=== PATIENT | male | born 1985 | race Caucasian/White ===

== ENCOUNTER 2016-06-19 08:40 | Emergency (ER) | payer MEDICAID ==
[~2016-06-19] VITALS: Ht 175.3 cm; Wt 73.9 kg
[~2016-06-19 08:40] MED LIST: METFORMIN
[2016-06-19 09:40] VITALS: BP 126/83
[2016-06-19] MEDS ORDERED: CYCLOBENZAPRINE 10MG TABLET PO ONE (09:45)
[2016-06-19] MEDS ORDERED: IBUPROFEN 400MG TABLET PO ONE (09:45)
== END 2016-06-19 11:49 | disposition home or self-care (01) ==
LOC: ER 09:18
DX: S29.011A Strain of muscle and tendon of front wall of thorax, initial encounter (principal); M62.838 Other muscle spasm; E11.9 Type 2 diabetes mellitus without complications; F17.200 Nicotine dependence, unspecified, uncomplicated; Z88.0 Allergy status to penicillin; Z79.84 Long term (current) use of oral hypoglycemic drugs; X58.XXXA Exposure to other specified factors, initial encounter; Y93.89 Activity, other specified; Y99.8 Other external cause status; Y92.89 Other specified places as the place of occurrence of the external cause
CPT/HCPCS: 71010; 99283

== ENCOUNTER 2016-07-15 02:20 | Emergency (ER) | payer MEDICAID ==
[~2016-07-15] VITALS: Ht 180.3 cm; Wt 72.7 kg
[2016-07-15] MEDS ORDERED: KETOROLAC 60MG/2ML VIAL IM ONE (03:45)
[2016-07-15 04:10] VITALS: BP 103/62
== END 2016-07-15 05:02 | disposition home or self-care (01) ==
LOC: ER 02:21
DX: S46.912A Strain of unspecified muscle, fascia and tendon at shoulder and upper arm level, left arm, initial encounter (principal); E11.9 Type 2 diabetes mellitus without complications; F17.200 Nicotine dependence, unspecified, uncomplicated; R56.9 Unspecified convulsions; Z88.0 Allergy status to penicillin; Z79.84 Long term (current) use of oral hypoglycemic drugs; Z79.899 Other long term (current) drug therapy; X58.XXXA Exposure to other specified factors, initial encounter; Y93.89 Activity, other specified; Y99.8 Other external cause status; Y92.89 Other specified places as the place of occurrence of the external cause
CPT/HCPCS: 73090; 73110; 96372; 99284; J1885

== ENCOUNTER 2016-08-05 11:31 | Emergency (ER) | payer MEDICAID ==
[~2016-08-05] VITALS: Ht 182.9 cm; Wt 73.0 kg
[2016-08-05 14:12] VITALS: BP 126/79
[2016-08-05] MEDS ORDERED: LIDOCAINE HCL 1%/EPI 1:200,000 30 ML VIAL MC ONE (16:45)
[2016-08-05] MEDS ORDERED: BACITRACIN ZINC OINT UDPKT TOP ONE (16:45)
== END 2016-08-05 18:35 | disposition home or self-care (01) ==
LOC: ER 14:24
DX: S51.811A Laceration without foreign body of right forearm, initial encounter (principal); W25.XXXA Contact with sharp glass, initial encounter; Y93.89 Activity, other specified; Y92.89 Other specified places as the place of occurrence of the external cause; I10 Essential (primary) hypertension; F17.210 Nicotine dependence, cigarettes, uncomplicated; E11.9 Type 2 diabetes mellitus without complications; G40.909 Epilepsy, unspecified, not intractable, without status epilepticus; Z85.110 Personal history of malignant carcinoid tumor of bronchus and lung
CPT/HCPCS: 12002; 73090; 99284; Z7610

== ENCOUNTER 2018-02-14 13:23 | Emergency (ER) | payer MEDICAID ==
[~2018-02-14] VITALS: Ht 175.3 cm; Wt 79.0 kg
[2018-02-14] MEDS ORDERED: PHEN100C4 PO (13:28)
[2018-02-14] MEDS ORDERED: SODIUM CHLORIDE 0.9% 500 ML IV ONE (15:00)
[2018-02-14 15:19] LABS: BASOPHILS % 0.7 % (0.0-2.0); EOSINOPHILS % 5.5 % (0.0-5.0); HEMATOCRIT. 41.9 % (42.0-52.0); HEMOGLOBIN. 14.2 g/dL (14.0-18.0); LYMPHOCYTES % 15.4 % (20.0-50.0); MEAN CORPUSCULAR HEMOGLOBIN 31.1 pg (28.0-32.0); MEAN CORPUSCULAR VOLUME 92.1 fL (80.0-94.0); MEAN PLATELET VOLUME 7.6 fl (7.4-10.4); MONOCYTES % 9.4 % (2.0-8.0); PLATELET 209 x1000/uL (130-400); RED BLOOD CELL COUNT 4.55 mill/uL (4.7-6.1); RED CELL DISTRIBUTION WIDTH 13.8 % (11.6-14.6)
[2018-02-14 16:17] LABS: CLARITY URINE CLEAR (CLEAR); COLOR URINE YELLOW (YELLOW); KETONES URINE NEGATIVE (NEGATIVE); LEUKOCYTE ESTERASE URINE 1+ (NEGATIVE); NITRITE URINE NEGATIVE (NEGATIVE); OCCULT BLOOD URINE NEGATIVE (NEGATIVE); PROTEIN URINE NEGATIVE (NEGATIVE); SPECIFIC GRAVITY URINE 1.018 (1.005-1.030)
[2018-02-14 16:30] LABS: CHLORIDE 108 mEq/L (98-107)
[2018-02-14 16:40] LABS: *AMPHETAMINES SCREEN URINE NEGATIVE (NEGATIVE); *BARBITURATES SCREEN URINE NEGATIVE (NEGATIVE)
[2018-02-14 16:41] LABS: *BENZODIAZEPINES SCREEN URINE PRESUMTIVE POSITIVE (NEGATIVE); *COCAINE SCREEN URINE NEGATIVE (NEGATIVE); METHADONE URINE SCREEN NEGATIVE (NEGATIVE); OPIATES URINE SCREEN NEGATIVE (NEGATIVE); PHENCYCLIDINE URINE SCREEN NEGATIVE (NEGATIVE)
[2018-02-14 16:43] LABS: CANNABINOID URINE SCREEN NEGATIVE (NEGATIVE)
[2018-02-14] MEDS ORDERED: PHENYTOIN SODIUM EXTENDED 100MG CAPSULE PO ONE (16:45)
[2018-02-14 16:52] LABS: VALPROIC ACID < 3.0 ug/mL (50-100)
[2018-02-14] MEDS ORDERED: SULFAMETHOXAZOLE/TRIMETHOPRIM 800/160MG TABLET PO ONE (18:15)
[2018-02-14 18:23] VITALS: BP 105/66
== END 2018-02-14 18:35 | disposition home or self-care (01) ==
LOC: ER 13:23
DX: G40.909 Epilepsy, unspecified, not intractable, without status epilepticus (principal); E11.65 Type 2 diabetes mellitus with hyperglycemia; E86.0 Dehydration; E88.09 Other disorders of plasma-protein metabolism, not elsewhere classified; E87.8 Other disorders of electrolyte and fluid balance, not elsewhere classified; F99 Mental disorder, not otherwise specified; F13.10 Sedative, hypnotic or anxiolytic abuse, uncomplicated; D64.9 Anemia, unspecified; Z88.0 Allergy status to penicillin; Z79.84 Long term (current) use of oral hypoglycemic drugs
CPT/HCPCS: 36415; 71045; 80165; 80185; 80305; 82542; 82962; 83735; 83880; 84484; 93005; 99284

== ENCOUNTER 2018-03-28 11:07 | Emergency (ER) | payer MEDICAID ==
[~2018-03-28] VITALS: Ht 180.3 cm; Wt 82.0 kg
[~2018-03-28 11:07] MED LIST changes: +PHEN100C4 PO
[2018-03-28] MEDS ORDERED: SODIUM CHLORIDE 0.9% 1,000 ML IV ONE (11:37)
[2018-03-28] MEDS ORDERED: LORAZEPAM 2MG/ML CPJ IV ONE (11:45)
[2018-03-28 12:06] LABS: EOSINOPHILS % 6.3 % (0.0-5.0); HEMATOCRIT. 43.9 % (42.0-52.0); LYMPHOCYTES % 21.7 % (20.0-50.0); MEAN CORPUSCULAR VOLUME 90.7 fL (80.0-94.0); MEAN PLATELET VOLUME 7.5 fl (7.4-10.4); MONOCYTES % 7.8 % (2.0-8.0); NEUTROPHILS % 63.2 % (40.0-76.0); PLATELET 234 x1000/uL (130-400); RED BLOOD CELL COUNT 4.84 mill/uL (4.7-6.1); RED CELL DISTRIBUTION WIDTH 13.8 % (11.6-14.6)
[2018-03-28 12:14] LABS: CHLORIDE 107 mEq/L (98-107)
[2018-03-28 12:20] LABS: ETHANOL BLOOD < 10 mg/dL
[2018-03-28 12:23] LABS: PROTHROMBIN TIME 10.4 sec (9.1-11.1)
[2018-03-28] MEDS: SODIUM CHLORIDE 0.9% IV NR ×2 (12:28→12:29)
[2018-03-28] MEDS: PHENYTOIN SODIUM IV NR ×2 (12:28→12:29)
[2018-03-28] MEDS ORDERED: PHENYTOIN SODIUM EXTENDED 100MG CAPSULE PO ONE (13:30)
[2018-03-28 14:10] LABS: CLARITY URINE CLOUDY (CLEAR); COLOR URINE YELLOW (YELLOW); KETONES URINE NEGATIVE (NEGATIVE); LEUKOCYTE ESTERASE URINE NEGATIVE (NEGATIVE); NITRITE URINE NEGATIVE (NEGATIVE); OCCULT BLOOD URINE NEGATIVE (NEGATIVE); PH URINE 8.5 (4.5-8.0); PROTEIN URINE NEGATIVE (NEGATIVE); SPECIFIC GRAVITY URINE 1.013 (1.005-1.030)
[2018-03-28 14:47] LABS: *AMPHETAMINES SCREEN URINE NEGATIVE (NEGATIVE); *BARBITURATES SCREEN URINE NEGATIVE (NEGATIVE); *BENZODIAZEPINES SCREEN URINE PRESUMTIVE POSITIVE (NEGATIVE); *COCAINE SCREEN URINE NEGATIVE (NEGATIVE); CANNABINOID URINE SCREEN NEGATIVE (NEGATIVE); METHADONE URINE SCREEN NEGATIVE (NEGATIVE); OPIATES URINE SCREEN NEGATIVE (NEGATIVE); PHENCYCLIDINE URINE SCREEN NEGATIVE (NEGATIVE)
[2018-03-28 17:00] VITALS: BP 113/84
== END 2018-03-28 17:13 | disposition home or self-care (01) ==
LOC: ER 11:11
DX: G40.909 Epilepsy, unspecified, not intractable, without status epilepticus (principal); I45.10 Unspecified right bundle-branch block; Z88.0 Allergy status to penicillin
CPT/HCPCS: 36415; 70450; 71045; 72125; 80053; 80185; 80305; 81003; 84484; 85025; 85610; 93005; 96365; 96366; 96375; 99284; G0482; J1165; J2060; J7030; J7050

== ENCOUNTER 2018-03-28 20:00 | Emergency (ER) | payer MEDICAID ==
[~2018-03-28] VITALS: Ht 172.7 cm; Wt 72.0 kg
[2018-03-28 20:02] VITALS: BP 128/87
== END 2018-03-29 00:27 | disposition left against medical advice (07) ==
LOC: ER 20:00
DX: Z53.21 Procedure and treatment not carried out due to patient leaving prior to being seen by health care provider (principal)

== ENCOUNTER 2020-10-22 05:57 | Emergency (ER) | payer MEDICAID ==
[~2020-10-22] VITALS: Ht 180.3 cm; Wt 73.0 kg
[2020-10-22 06:36] LABS: BASOPHILS % 0.7 % (0.0-2.0); EOSINOPHILS % 1.9 % (0.0-5.0); HEMATOCRIT. 36.7 % (42.0-52.0); HEMOGLOBIN. 12.8 g/dL (14.0-18.0); LYMPHOCYTES % 19.3 % (20.0-50.0); MEAN CORPUSCULAR HEMOGLOBIN 29.5 pg (28.0-32.0); MEAN CORPUSCULAR VOLUME 84.7 fL (80.0-94.0); MEAN PLATELET VOLUME 6.3 fl (7.4-10.4); MONOCYTES % 9.3 % (2.0-8.0); NEUTROPHILS % 68.8 % (40.0-76.0); PLATELET 245 x1000/uL (130-400); RED BLOOD CELL COUNT 4.34 mill/uL (4.7-6.1); RED CELL DISTRIBUTION WIDTH 13.3 % (11.6-14.6)
[2020-10-22 06:42] LABS: CHLORIDE 108 mEq/L (98-107)
[2020-10-22 06:46] LABS: ETHANOL BLOOD < 10 mg/dL
[2020-10-22] MEDS ORDERED: LEVETIRACETAM 500MG PREMIX 100 ML IV ONE (07:45)
[2020-10-22] MEDS ORDERED: LACTATED RINGERS 1,000 ML IV SCH (07:45)
[2020-10-22] MEDS ORDERED: LEVETIRACETAM 500MG TABLET PO ONE (07:45)
[2020-10-22 11:29] VITALS: BP 117/70
== END 2020-10-22 11:35 | disposition home or self-care (01) ==
LOC: ER 05:57
DX: R56.9 Unspecified convulsions (principal); Z88.0 Allergy status to penicillin
CPT/HCPCS: 36415; 80053; 80320; 82962; 85025; 96361; 96365; 99284; J1953; 99285; G0480

== ENCOUNTER 2020-10-30 20:45 | Emergency (ER) | payer MEDICAID ==
[~2020-10-30] VITALS: Ht 188 cm; Wt 82.0 kg
[2020-10-30] MEDS ORDERED: SODIUM CHLORIDE 0.9% 1,000 ML IV ONE (22:00)
[2020-10-30] MEDS ORDERED: LEVETIRACETAM 1000MG PREMIX 100 ML IV ONE (22:00)
[2020-10-30] MEDS ORDERED: LEVETIRACETAM 500MG TABLET PO ONE (22:15)
[2020-10-30 22:22] LABS: BASOPHILS % 0.7 % (0.0-2.0); EOSINOPHILS % 3.5 % (0.0-5.0); HEMATOCRIT. 36.4 % (42.0-52.0); HEMOGLOBIN. 12.4 g/dL (14.0-18.0); LYMPHOCYTES % 26.4 % (20.0-50.0); MEAN CORPUSCULAR HEMOGLOBIN 29.8 pg (28.0-32.0); MEAN CORPUSCULAR VOLUME 87.3 fL (80.0-94.0); MEAN PLATELET VOLUME 6.6 fl (7.4-10.4); MONOCYTES % 10.7 % (2.0-8.0); NEUTROPHILS % 58.7 % (40.0-76.0); PLATELET 286 x1000/uL (130-400); RED BLOOD CELL COUNT 4.17 mill/uL (4.7-6.1); RED CELL DISTRIBUTION WIDTH 13.9 % (11.6-14.6)
[2020-10-30 22:23] LABS: CHLORIDE 111 mEq/L (98-107)
[2020-10-30 22:27] LABS: ETHANOL BLOOD < 10 mg/dL
[2020-10-30] MEDS ORDERED: KEPP500 MT (23:36)
[2020-10-31 07:38] VITALS: BP 109/67
== END 2020-10-31 07:44 | disposition home or self-care (01) ==
LOC: ER 20:55
DX: R56.9 Unspecified convulsions (principal); F17.290 Nicotine dependence, other tobacco product, uncomplicated; Z88.0 Allergy status to penicillin; Z79.899 Other long term (current) drug therapy; E86.0 Dehydration
CPT/HCPCS: 36415; 80053; 80185; 80320; 85025; 96361; 96374; 99285; J1953; J7030; G0480

== ENCOUNTER 2020-12-03 01:43 | Emergency (ER) | payer MEDICAID ==
[~2020-12-03] VITALS: Ht 175.3 cm; Wt 82.0 kg
[~2020-12-03 01:43] MED LIST changes: +KEPP500 MT
[2020-12-03] MEDS ORDERED: ACETAMINOPHEN 325MG TABLET PO ONE (02:15)
[2020-12-03] MEDS ORDERED: LEVETIRACETAM 500MG TABLET PO ONE (02:15)
[2020-12-03] MEDS ORDERED: DEXT 5%/0.9% NACL 500 ML IV ONE (02:15)
[2020-12-03 03:09] LABS: CLARITY URINE CLEAR (CLEAR); COLOR URINE YELLOW (YELLOW); KETONES URINE NEGATIVE (NEGATIVE); LEUKOCYTE ESTERASE URINE NEGATIVE (NEGATIVE); NITRITE URINE NEGATIVE (NEGATIVE); OCCULT BLOOD URINE NEGATIVE (NEGATIVE); PROTEIN URINE 1+ (NEGATIVE); SPECIFIC GRAVITY URINE 1.015 (1.005-1.030)
[2020-12-03 03:16] LABS: BASOPHILS % 0.6 % (0.0-2.0); EOSINOPHILS % 1.7 % (0.0-5.0); HEMATOCRIT. 39.6 % (42.0-52.0); HEMOGLOBIN. 13.5 g/dL (14.0-18.0); LYMPHOCYTES % 16.4 % (20.0-50.0); MEAN CORPUSCULAR HEMOGLOBIN 30.7 pg (28.0-32.0); MEAN PLATELET VOLUME 7.3 fl (7.4-10.4); MONOCYTES % 8.7 % (2.0-8.0); NEUTROPHILS % 72.6 % (40.0-76.0); PLATELET 260 x1000/uL (130-400); RED CELL DISTRIBUTION WIDTH 13.9 % (11.6-14.6)
[2020-12-03 03:19] LABS: CHLORIDE 110 mEq/L (98-107)
[2020-12-03 03:23] LABS: ETHANOL BLOOD < 10 mg/dL
[2020-12-03 03:39] LABS: *AMPHETAMINES SCREEN URINE NEGATIVE (NEGATIVE); *BARBITURATES SCREEN URINE NEGATIVE (NEGATIVE); *BENZODIAZEPINES SCREEN URINE NEGATIVE (NEGATIVE)
[2020-12-03 03:40] LABS: *COCAINE SCREEN URINE NEGATIVE (NEGATIVE); CANNABINOID URINE SCREEN NEGATIVE (NEGATIVE); METHADONE URINE SCREEN NEGATIVE (NEGATIVE); OPIATES URINE SCREEN NEGATIVE (NEGATIVE); PHENCYCLIDINE URINE SCREEN NEGATIVE (NEGATIVE)
[2020-12-03 05:00] VITALS: BP 109/68
== END 2020-12-03 05:20 | disposition home or self-care (01) ==
LOC: ER 01:43
DX: G40.909 Epilepsy, unspecified, not intractable, without status epilepticus (principal); F17.200 Nicotine dependence, unspecified, uncomplicated; Z79.899 Other long term (current) drug therapy; Z88.0 Allergy status to penicillin
CPT/HCPCS: 36415; 80053; 80305; 80320; 81003; 82962; 85025; 99284; J7042; G0480

== ENCOUNTER 2020-12-28 20:39 | Emergency (ER) | payer SELFPAY ==
[~2020-12-28] VITALS: Ht 172.7 cm; Wt 72.0 kg
[2020-12-29] MEDS: LEVETIRACETAM 500MG TABLET PO ONE (00:24)
[2020-12-29] MEDS ORDERED: KEPP500 MT (00:27)
[2020-12-29 00:30] VITALS: BP 111/54
== END 2020-12-29 00:45 | disposition home or self-care (01) ==
LOC: ER 20:39
DX: G40.509 Epileptic seizures related to external causes, not intractable, without status epilepticus (principal); Z88.0 Allergy status to penicillin; Z86.59 Personal history of other mental and behavioral disorders; Z91.14 Patient's other noncompliance with medication regimen
CPT/HCPCS: 82962; 99283

== ENCOUNTER 2020-12-29 10:19 | Emergency (ER) | payer MEDICAID ==
[~2020-12-29] VITALS: Ht 182.9 cm; Wt 91.0 kg
[2020-12-29] MEDS ORDERED: KETOROLAC 30MG/ML VIAL IV STA (10:48)
[2020-12-29] MEDS ORDERED: SODIUM CHLORIDE 0.9% 1,000 ML IV ONE (11:00)
[2020-12-29 11:02] LABS: BASOPHILS % 0.8 % (0.0-2.0); EOSINOPHILS % 4.4 % (0.0-5.0); HEMATOCRIT. 37.9 % (42.0-52.0); HEMOGLOBIN. 13.3 g/dL (14.0-18.0); LYMPHOCYTES % 29.6 % (20.0-50.0); MEAN CORPUSCULAR HEMOGLOBIN 30.7 pg (28.0-32.0); MEAN CORPUSCULAR VOLUME 87.7 fL (80.0-94.0); MEAN PLATELET VOLUME 6.7 fl (7.4-10.4); MONOCYTES % 9.2 % (2.0-8.0); PLATELET 214 x1000/uL (130-400); RED BLOOD CELL COUNT 4.33 mill/uL (4.7-6.1); RED CELL DISTRIBUTION WIDTH 13.2 % (11.6-14.6)
[2020-12-29 11:09] LABS: CHLORIDE 112 mEq/L (98-107)
[2020-12-29 11:12] LABS: ETHANOL BLOOD < 10 mg/dL
[2020-12-29 11:40] LABS: D-DIMER 0.79 mg/L FEU (<0.50); PARTIAL THROMBOPLASTIN TIME 24.7 sec (23.4-31.0); PROTHROMBIN TIME 11.1 sec (9.6-11.0)
[2020-12-29 16:16] LABS: *AMPHETAMINES SCREEN URINE NEGATIVE (NEGATIVE); *BARBITURATES SCREEN URINE NEGATIVE (NEGATIVE); *BENZODIAZEPINES SCREEN URINE NEGATIVE (NEGATIVE); *COCAINE SCREEN URINE NEGATIVE (NEGATIVE); CANNABINOID URINE SCREEN NEGATIVE (NEGATIVE); METHADONE URINE SCREEN NEGATIVE (NEGATIVE); OPIATES URINE SCREEN NEGATIVE (NEGATIVE); PHENCYCLIDINE URINE SCREEN NEGATIVE (NEGATIVE)
[2020-12-29] MEDS ORDERED: IOHEXOL-350 100 ML BOTTLE ONE (16:57)
[2020-12-29 18:00] VITALS: BP 113/70
== END 2020-12-29 19:05 | disposition home or self-care (01) ==
LOC: ER 10:26
DX: M79.89 Other specified soft tissue disorders (principal); R07.89 Other chest pain; I10 Essential (primary) hypertension; Z88.0 Allergy status to penicillin
CPT/HCPCS: 36415; 71045; 71275; 80053; 80305; 80320; 83690; 83880; 84484; 85025; 85379; 85610; 85730; 93005; 93970; 96361; 96374; 99285; J1885; J7030; Q9967; G0480

== ENCOUNTER 2021-01-10 21:30 | Emergency (ER) | payer SELFPAY ==
[~2021-01-10] VITALS: Ht 182.9 cm; Wt 82.0 kg
[2021-01-10 21:43] VITALS: BP 119/82
[2021-01-10] MEDS ORDERED: LEVETIRACETAM 250MG TABLET PO ONE (23:15)
[2021-01-10] MEDS ORDERED: KEPP250 MT (23:27)
== END 2021-01-11 00:55 | disposition home or self-care (01) ==
LOC: ER 21:30
DX: Z76.0 Encounter for issue of repeat prescription (principal); G40.909 Epilepsy, unspecified, not intractable, without status epilepticus; Z59.00 Homelessness unspecified
CPT/HCPCS: 99283

== ENCOUNTER 2021-02-15 15:16 | Emergency (ER) | payer SELFPAY ==
[~2021-02-15] VITALS: Ht 172.7 cm; Wt 73.0 kg
[~2021-02-15 15:16] MED LIST changes: +KEPP250 MT
[2021-02-15 16:53] LABS: BASOPHILS % 0.9 % (0.0-2.0); EOSINOPHILS % 5.3 % (0.0-5.0); HEMOGLOBIN. 14.9 g/dL (14.0-18.0); LYMPHOCYTES % 32.5 % (20.0-50.0); MEAN CORPUSCULAR HEMOGLOBIN 29.4 pg (28.0-32.0); MEAN CORPUSCULAR VOLUME 88.8 fL (80.0-94.0); MEAN PLATELET VOLUME 7.9 fl (7.4-10.4); MONOCYTES % 9.9 % (2.0-8.0); NEUTROPHILS % 51.4 % (40.0-76.0); PLATELET 266 x1000/uL (130-400); RED BLOOD CELL COUNT 5.07 mill/uL (4.7-6.1)
[2021-02-15 16:57] LABS: CHLORIDE 110 mEq/L (98-107)
[2021-02-15 17:01] LABS: ETHANOL BLOOD < 10 mg/dL
[2021-02-15 17:05] LABS: CLARITY URINE CLEAR (CLEAR); COLOR URINE YELLOW (YELLOW); KETONES URINE NEGATIVE (NEGATIVE); LEUKOCYTE ESTERASE URINE NEGATIVE (NEGATIVE); NITRITE URINE NEGATIVE (NEGATIVE); OCCULT BLOOD URINE NEGATIVE (NEGATIVE); PH URINE 6.5 (4.5-8.0); PROTEIN URINE NEGATIVE (NEGATIVE); SPECIFIC GRAVITY URINE 1.012 (1.005-1.030); UROBILINOGEN URINE 0.2 E.U./dL (0.2-1.0)
[2021-02-15 17:14] LABS: *AMPHETAMINES SCREEN URINE NEGATIVE (NEGATIVE); *BARBITURATES SCREEN URINE NEGATIVE (NEGATIVE); *BENZODIAZEPINES SCREEN URINE NEGATIVE (NEGATIVE); CANNABINOID URINE SCREEN NEGATIVE (NEGATIVE); METHADONE URINE SCREEN NEGATIVE (NEGATIVE); OPIATES URINE SCREEN NEGATIVE (NEGATIVE); PHENCYCLIDINE URINE SCREEN NEGATIVE (NEGATIVE)
[2021-02-15 17:15] LABS: *COCAINE SCREEN URINE NEGATIVE (NEGATIVE)
[2021-02-15 17:32] VITALS: BP 115/80
== END 2021-02-15 17:33 | disposition home or self-care (01) ==
LOC: ER 15:16
DX: G40.909 Epilepsy, unspecified, not intractable, without status epilepticus (principal); E11.9 Type 2 diabetes mellitus without complications; I10 Essential (primary) hypertension; F17.210 Nicotine dependence, cigarettes, uncomplicated; Z79.84 Long term (current) use of oral hypoglycemic drugs; Z88.0 Allergy status to penicillin
CPT/HCPCS: 36415; 80053; 80305; 80320; 81003; 85025; 99283; G0480

== ENCOUNTER 2021-11-30 19:19 | Emergency (ER) | payer MEDICAID ==
[~2021-11-30] VITALS: Ht 172.7 cm; Wt 70.0 kg
[2021-11-30 19:54] VITALS: BP 124/86
[2021-11-30] MEDS ORDERED: KETOROLAC 30MG/ML VIAL IM ONE (23:15)
[2021-11-30] MEDS ORDERED: CYCLOBENZAPRINE 10MG TABLET PO ONE (23:15)
[2021-12-01] MEDS ORDERED: NAPR-1176 MT (00:22)
[2021-12-01] MEDS ORDERED: CYCL10TA21 MT (00:22)
== END 2021-12-01 00:52 | disposition home or self-care (01) ==
LOC: ER 19:19
DX: S16.1XXA Strain of muscle, fascia and tendon at neck level, initial encounter (principal); G40.909 Epilepsy, unspecified, not intractable, without status epilepticus; Z88.0 Allergy status to penicillin; X50.0XXA Overexertion from strenuous movement or load, initial encounter; Y93.89 Activity, other specified; Y92.89 Other specified places as the place of occurrence of the external cause; Y99.8 Other external cause status
CPT/HCPCS: 72040; 96372; 99283; J1885

== ENCOUNTER 2021-12-26 13:31 | Emergency (ER) | payer MEDICAID ==
[~2021-12-26] VITALS: Ht 175.3 cm; Wt 62.0 kg
[~2021-12-26 13:31] MED LIST changes: +CYCL10TA21 MT; +NAPR-1176 MT
[2021-12-26] MEDS ORDERED: PERM1LIQ TOP (15:20)
[2021-12-26] MEDS ORDERED: CETI10TA6 PO (15:20)
[2021-12-26 15:36] VITALS: BP 143/77
== END 2021-12-26 15:38 | disposition home or self-care (01) ==
LOC: ER 14:19
DX: B85.0 Pediculosis due to Pediculus humanus capitis (principal); G40.909 Epilepsy, unspecified, not intractable, without status epilepticus; F43.10 Post-traumatic stress disorder, unspecified; Z88.0 Allergy status to penicillin
CPT/HCPCS: 99282

== ENCOUNTER 2021-12-27 22:11 | Emergency (ER) | payer MEDICAID ==
[~2021-12-27] VITALS: Ht 172.7 cm; Wt 73.0 kg
[~2021-12-27 22:11] MED LIST changes: +CETI10TA6 PO; +PERM1LIQ TOP
[2021-12-28] VITALS: BP 100/64
[2021-12-28 00:51] LABS: HEMATOCRIT. 36.1 % (42.0-52.0); HEMOGLOBIN. 12.6 g/dL (14.0-18.0); LYMPHOCYTES % 24.8 % (20.0-50.0); MEAN CORPUSCULAR HEMOGLOBIN 31.4 pg (28.0-32.0); MEAN CORPUSCULAR VOLUME 90.5 fL (80.0-94.0); MEAN PLATELET VOLUME 6.7 fl (7.4-10.4); MONOCYTES % 11.1 % (2.0-8.0); NEUTROPHILS % 52.1 % (40.0-76.0); PLATELET 240 x1000/uL (130-400); RED BLOOD CELL COUNT 3.99 mill/uL (4.7-6.1); RED CELL DISTRIBUTION WIDTH 13.4 % (11.6-14.6)
[2021-12-28 00:58] LABS: CHLORIDE 110 mEq/L (98-107)
[2021-12-28] MEDS: LEVETIRACETAM 500MG TABLET PO ONE (01:11)
== END 2021-12-28 01:59 | disposition home or self-care (01) ==
LOC: ER 22:11
DX: R56.9 Unspecified convulsions (principal); Z79.899 Other long term (current) drug therapy
CPT/HCPCS: 36415; 80053; 85025; 99283

== ENCOUNTER 2022-01-03 10:40 | Emergency (ER) | payer MEDICAID, OTHER ==
[~2022-01-03] VITALS: Ht 165.1 cm; Wt 75.0 kg
[2022-01-03] MEDS ORDERED: PERM60CR4 TP (11:29)
[2022-01-03 11:44] VITALS: BP 126/75
== END 2022-01-03 11:47 | disposition home or self-care (01) ==
LOC: ER 10:40
DX: B85.0 Pediculosis due to Pediculus humanus capitis (principal); G40.909 Epilepsy, unspecified, not intractable, without status epilepticus; Z88.0 Allergy status to penicillin
CPT/HCPCS: 99282

== ENCOUNTER 2022-03-13 07:46 | Emergency (ER) | payer OTHER ==
[~2022-03-13] VITALS: Ht 172.7 cm; Wt 57.0 kg
[~2022-03-13 07:46] MED LIST changes: +PERM60CR4 TP
[2022-03-13 07:51] VITALS: BP 124/79
[2022-03-13] MEDS ORDERED: SULF1TAB48 MT (08:26)
== END 2022-03-13 12:47 | disposition home or self-care (01) ==
LOC: ER 07:46
DX: N61.1 Abscess of the breast and nipple (principal); G40.909 Epilepsy, unspecified, not intractable, without status epilepticus; Z88.0 Allergy status to penicillin
CPT/HCPCS: 76641; 99284

== ENCOUNTER 2022-05-01 17:53 | Emergency (ER) | payer MEDICAID, OTHER ==
[~2022-05-01] VITALS: Ht 180.3 cm; Wt 80.0 kg
[~2022-05-01 17:53] MED LIST changes: +SULF1TAB48 MT
[2022-05-01] MEDS ORDERED: NAPR-681 MT (20:56)
[2022-05-01] MEDS ORDERED: IBUPROFEN 600MG TABLET PO ONE (21:00)
[2022-05-01] MEDS ORDERED: LIDOCAINE 5% PATCH TOP SCH (21:00)
[2022-05-01 21:11] VITALS: BP 138/77
== END 2022-05-01 21:23 | disposition home or self-care (01) ==
LOC: ER 17:53
DX: M54.50 Low back pain, unspecified (principal); G40.909 Epilepsy, unspecified, not intractable, without status epilepticus; F43.10 Post-traumatic stress disorder, unspecified; Z88.0 Allergy status to penicillin
CPT/HCPCS: 99283

== ENCOUNTER 2022-05-18 17:59 | Emergency (ER) | payer MEDICAID ==
[~2022-05-18] VITALS: Ht 170.2 cm; Wt 76.0 kg
[~2022-05-18 17:59] MED LIST changes: +NAPR-681 MT
[2022-05-18] MEDS ORDERED: MIDAZOLAM HCL 2 MG/2 ML VIAL IM ONE (18:15)
[2022-05-18] MEDS ORDERED: LEVETIRACETAM 1000MG PREMIX 100 ML IV ONE (18:15)
[2022-05-18 23:43] LABS: BASOPHILS % 0.4 % (0.0-2.0); EOSINOPHILS % 0.9 % (0.0-5.0); HEMATOCRIT. 38.9 % (42.0-52.0); HEMOGLOBIN. 13.1 g/dL (14.0-18.0); LYMPHOCYTES % 15.9 % (20.0-50.0); MEAN CORPUSCULAR HEMOGLOBIN 30.6 pg (28.0-32.0); MEAN CORPUSCULAR VOLUME 90.8 fL (80.0-94.0); MEAN PLATELET VOLUME 7.4 fl (7.4-10.4); MONOCYTES % 5.4 % (2.0-8.0); NEUTROPHILS % 77.4 % (40.0-76.0); PLATELET 235 x1000/uL (130-400); RED BLOOD CELL COUNT 4.28 mill/uL (4.7-6.1); RED CELL DISTRIBUTION WIDTH 13.6 % (11.6-14.6)
[2022-05-18 23:47] LABS: CLARITY URINE CLEAR (CLEAR); COLOR URINE YELLOW (YELLOW); KETONES URINE NEGATIVE (NEGATIVE); LEUKOCYTE ESTERASE URINE NEGATIVE (NEGATIVE); NITRITE URINE NEGATIVE (NEGATIVE); OCCULT BLOOD URINE NEGATIVE (NEGATIVE); PROTEIN URINE NEGATIVE (NEGATIVE); SPECIFIC GRAVITY URINE 1.011 (1.005-1.030)
[2022-05-18 23:49] LABS: CHLORIDE 113 mEq/L (98-107)
[2022-05-19 00:04] LABS: ETHANOL BLOOD < 10 mg/dL
[2022-05-19 00:10] LABS: *AMPHETAMINES SCREEN URINE NEGATIVE (NEGATIVE); *BARBITURATES SCREEN URINE NEGATIVE (NEGATIVE); *BENZODIAZEPINES SCREEN URINE PRESUMTIVE POSITIVE (NEGATIVE); *COCAINE SCREEN URINE NEGATIVE (NEGATIVE); CANNABINOID URINE SCREEN PRESUMTIVE POSITIVE (NEGATIVE); METHADONE URINE SCREEN NEGATIVE (NEGATIVE); OPIATES URINE SCREEN NEGATIVE (NEGATIVE); PHENCYCLIDINE URINE SCREEN NEGATIVE (NEGATIVE)
[2022-05-19 01:00] VITALS: BP 114/73
== END 2022-05-19 02:09 | disposition home or self-care (01) ==
LOC: ER 17:59
DX: R56.9 Unspecified convulsions (principal); Z79.899 Other long term (current) drug therapy
CPT/HCPCS: 36415; 70450; 71045; 80053; 80305; 80320; 81003; 84443; 84484; 85025; 93005; 96365; 96366; 96372; 99285; J1953; J2250; Z7610; G0480

== ENCOUNTER 2022-05-24 18:25 | Emergency (ER) | payer MEDICAID, OTHER ==
[~2022-05-24] VITALS: Ht 177.8 cm; Wt 73.0 kg
[2022-05-24] MEDS ORDERED: SODIUM CHLORIDE 0.9% 1,000 ML IV ONE (18:45)
[2022-05-24] MEDS ORDERED: LORAZEPAM 2MG/ML CPJ IV ONE (18:45)
[2022-05-24] MEDS ORDERED: LEVETIRACETAM 500MG PREMIX 100 ML IV ONE (18:45)
[2022-05-24 19:50] LABS: BASOPHILS % 0.6 % (0.0-2.0); EOSINOPHILS % 5.1 % (0.0-5.0); HEMATOCRIT. 39.5 % (42.0-52.0); HEMOGLOBIN. 13.2 g/dL (14.0-18.0); LYMPHOCYTES % 28.7 % (20.0-50.0); MEAN CORPUSCULAR HEMOGLOBIN 30.4 pg (28.0-32.0); MEAN CORPUSCULAR VOLUME 90.7 fL (80.0-94.0); MEAN PLATELET VOLUME 7.2 fl (7.4-10.4); MONOCYTES % 8.1 % (2.0-8.0); NEUTROPHILS % 57.5 % (40.0-76.0); PLATELET 217 x1000/uL (130-400); RED BLOOD CELL COUNT 4.35 mill/uL (4.7-6.1); RED CELL DISTRIBUTION WIDTH 13.5 % (11.6-14.6)
[2022-05-24 19:57] LABS: CHLORIDE 108 mEq/L (98-107)
[2022-05-24 20:04] LABS: ETHANOL BLOOD < 10 mg/dL
[2022-05-24 22:45] LABS: *AMPHETAMINES SCREEN URINE NEGATIVE (NEGATIVE); *BARBITURATES SCREEN URINE NEGATIVE (NEGATIVE); *BENZODIAZEPINES SCREEN URINE PRESUMTIVE POSITIVE (NEGATIVE); *COCAINE SCREEN URINE NEGATIVE (NEGATIVE); CANNABINOID URINE SCREEN NEGATIVE (NEGATIVE); METHADONE URINE SCREEN NEGATIVE (NEGATIVE); OPIATES URINE SCREEN NEGATIVE (NEGATIVE); PHENCYCLIDINE URINE SCREEN NEGATIVE (NEGATIVE)
[2022-05-24 23:14] LABS: CLARITY URINE CLEAR (CLEAR); COLOR URINE YELLOW (YELLOW); KETONES URINE NEGATIVE (NEGATIVE); LEUKOCYTE ESTERASE URINE NEGATIVE (NEGATIVE); NITRITE URINE NEGATIVE (NEGATIVE); OCCULT BLOOD URINE NEGATIVE (NEGATIVE); PH URINE 6.5 (4.5-8.0); PROTEIN URINE NEGATIVE (NEGATIVE); UROBILINOGEN URINE 0.2 E.U./dL (0.2-1.0)
[2022-05-25 05:30] VITALS: BP 111/62
== END 2022-05-25 06:34 | disposition left against medical advice (07) ==
LOC: ER 18:25 → EDBEDREQTM 23:35 → EDBEDREQ 23:35 → ER 05-25 06:34 → CANBEDREQ 05-25 09:38
DX: G40.909 Epilepsy, unspecified, not intractable, without status epilepticus (principal); Z88.0 Allergy status to penicillin
CPT/HCPCS: 36415; 70450; 71045; 80053; 80305; 80320; 81003; 84484; 85025; 93005; 96365; 96366; 99285; J1953; J7030; Z7610; G0480

== ENCOUNTER 2022-06-20 09:42 | Emergency (ER) | payer MEDICAID ==
[~2022-06-20] VITALS: Ht 175.3 cm; Wt 77.0 kg
[2022-06-20 09:58] VITALS: BP 118/81
[2022-06-20] MEDS ORDERED: KETOROLAC 60MG/2ML VIAL IM SCH (11:46)
[2022-06-20] MEDS ORDERED: SULF1TAB48 MT (12:10)
[2022-06-20] MEDS ORDERED: CLIN-194 MT (12:10)
[2022-06-20] MEDS ORDERED: NAPR-681 PO (12:10)
[2022-06-20] MEDS ORDERED: CYCL5TAB PO (12:13)
== END 2022-06-20 12:43 | disposition home or self-care (01) ==
LOC: ER 09:42
DX: M25.551 Pain in right hip (principal); N61.21 Granulomatous mastitis, right breast; Z88.0 Allergy status to penicillin; Z79.899 Other long term (current) drug therapy
CPT/HCPCS: 96372; 99283; J1885; Z7610

== ENCOUNTER 2022-11-18 14:09 | Emergency (ER) | payer MEDICAID ==
[~2022-11-18] VITALS: Ht 175.3 cm; Wt 73.0 kg
[~2022-11-18 14:09] MED LIST changes: +CLIN-194 MT; +CYCL5TAB PO; +NAPR-681 PO
[2022-11-18 14:22] VITALS: BP 117/73; PULSE 87; RESP 16; TEMP 98.4; O2SAT 98
[2022-11-18] MEDS ORDERED: IBUP-2030 MT (15:19)
== END 2022-11-18 15:14 | disposition home or self-care (01) ==
LOC: ER 14:09
DX: S43.102A Unspecified dislocation of left acromioclavicular joint, initial encounter (principal); F43.10 Post-traumatic stress disorder, unspecified; Z88.0 Allergy status to penicillin; Z79.899 Other long term (current) drug therapy; X50.9XXA Other and unspecified overexertion or strenuous movements or postures, initial encounter; Y93.89 Activity, other specified; Y92.89 Other specified places as the place of occurrence of the external cause; Y99.8 Other external cause status
CPT/HCPCS: 73030; 99283

== ENCOUNTER 2023-03-01 07:49 | Emergency (ER) | payer MEDICAID ==
[~2023-03-01] VITALS: Ht 175.3 cm; Wt 76.2 kg
[~2023-03-01 07:49] MED LIST changes: +IBUP-2030 MT
[2023-03-01 08:11] VITALS: TEMP 98.2; O2SAT 97
[2023-03-01] MEDS ORDERED: CLIN-116 MT (10:40)
[2023-03-01 11:12] VITALS: BP 110/64; PULSE 72; RESP 20
== END 2023-03-01 11:13 | disposition home or self-care (01) ==
LOC: ER 08:00
DX: N61.1 Abscess of the breast and nipple (principal); M79.644 Pain in right finger(s); Z88.0 Allergy status to penicillin; Z79.899 Other long term (current) drug therapy; Z86.59 Personal history of other mental and behavioral disorders; Z98.890 Other specified postprocedural states
CPT/HCPCS: 73140; 99283